=== PATIENT | female | born 1995 | race Asian ===

== ENCOUNTER 2024-08-19 19:00 | Inpatient (IN) | payer MEDICAID, SELFPAY ==
[2024-08-19 19:15] VITALS: BMI 40.5
[2024-08-19 19:27] VITALS: BP 115/62; PULSE 88; PULSE 90; RESP 18; TEMP 36.6; O2SAT 97
[2024-08-19 19:53] LABS: Absolute Lymphocyte Count 1.88 X10^3/uL (0.83-4.51); Absolute Neutrophil Count 5.5 X10^3/uL (2.0-7.7); Basophil# 0.02 X10^3/uL; Basophil% 0.3 % (0-1); Eosinophil# 0.05 X10^3/uL; Eosinophils% 0.6 % (0-5); Hematocrit 40.4 % (37-47); Lymphocyte # 1.88 X10^3/ul (0.83-4.51); Lymphocyte % 23.7 % (19-41); Mean Corp Hgb Conc 34.7 g/dL (32-36); Mean Corpuscular Hgb 32.9 pg (27.0-32.0); Mean Corpuscular Volume 94.8 fL (81-99); Monocyte# 0.48 X10^3/uL; Monocyte% 6.1 % (0-10); NRBC Flagged by Analyzer 0 % (0-5); Neutrophil # 5.45 X10^3/uL (2.7-7.7); Neutrophil % 68.7 % (47-70); Platelet Count 196 K/mm3 (150-450); RBC Distribution Width SD 44.5 fl (35.1-43.9); Red Blood Count 4.26 M/mm3 (4.2-5.4); White Blood Count 7.9 K/mm3 (4.4-11.0)
--- NOTE | 2024-08-19 20:03 | PCM.HP.OB ---
HPI - General General Date of Admission: 08/19/24 HPI Narrative JEANNIE JESSICA, is a 29 F who presents for scheduled induction of labor for cholestasis. Maternal Data Information DEEPAK Calculator Estimated Delivery Date Method Current WG Current Estimate 09/09/24 Manual 37w 0d PFSH PFSH Home Medications ?Medication ?Instructions ?Recorded ?Last Taken ?Type aspirin 81 mg capsule 81 mg PO DAILY 08/19/24 08/19/24 History vit no.95-ferrous 1 tab PO DAILY 08/19/24 08/19/24 History fumarate 28 mg-folic acid 800 mcg tablet () ursodiol 300 mg capsule 300 mg PO TID cholestasis 08/19/24 08/19/24 History Allergy/AdvReac Type Severity Reaction Status Date / Time No Known Allergies Allergy Verified 08/19/24 19:34 NST FHR Rate Baby A Baseline: 140 Variability:: Moderate Accelerations:: 15 x 15 Decelerations:: None NST Reactive:: Yes FHR Category:: Category I Uterine Activity:: Irritability- occasional contraction ROS Eyes Eyes: Denies blurry vision, change in vision or spots in vision ENT HEENT: Denies dizziness or headache(s) Cardiovascular Cardiovascular: Denies abdominal pain, chest pain or dyspnea Respiratory/Chest Respiratory/Chest: Denies cough, dyspnea, shortness of breath at rest or shortness of breath with exertion Gastrointestinal Gastrointestinal: Denies abdominal pain, diarrhea or vomiting Genitourinary Genitourinary: Denies change in urinary stream, difficulty urinating or dysuria Musculoskeletal Musculoskeletal: Reports none Integumentary Integumentary: Denies rash Neurologic Neurologic: Denies dizziness, headache(s), memory loss or weakness Psychiatric Psychiatric: Reports none Vital Signs Vital Signs Vital Signs: 08/19/24 19:27 08/19/24 19:27 08/19/24 19:27 Temperature Temperature Source Pulse Rate 88 Respiratory Rate Blood Pressure 115/62 BP Systolic 115 BP Diastolic 62 Pulse Ox 97 08/19/24 19:27 08/19/24 19:27 08/19/24 19:27 Temperature Temperature Source Temporal Pulse Rate 90 Respiratory Rate 18 Blood Pressure BP Systolic BP Diastolic Pulse Ox 08/19/24 19:27 Temperature 97.8 F Temperature Source Pulse Rate Respiratory Rate Blood Pressure BP Systolic BP Diastolic Pulse Ox Weight Weight: 229 lb Body Mass Index (BMI) 40.5 Physical Exam Const alert, oriented x3 and no apparent distress General Appearance: cooperative Orientation / Consciousness: awake Exam Limitations: no limitations HEENT normocephalic Head and Scalp: normal to inspection Eyes General Eye: normal appearance of both eyes Neck full ROM and no lymphadenopathy Lymph Lymphatic: no lymphadenopathy noted Chest inspection of chest normal Resp normal respiratory effort, normal air movement and clear to auscultation bilaterally Effort and Inspection: able to speak in complete sentences and symmetric chest movement Cardio regular rate and regular rhythm GI normal to inspection, nondistended, normoactive bowel sounds Manual OB Exam: presentation cephalic Back/Spine normal ROM Extremity full ROM and no calf tenderness Skin no rashes or lesions noted General Skin Exam: no breakdown Neuro oriented x3 and CN's II-XII intact bilaterally Psych mental status grossly normal and thought process normal Labs Labs Labs: Blood Type Pending Antibody Screen Pending Hct 40.4 % (37-47) Hgb 14.0 g/dL (12.0-15.0) Syphilis Total Ab Pending Assessment & Plan (1) 37 weeks gestation of : (2) Encounter for induction of labor: (3) Cholestasis during : (4) Obesity affecting : (5) Language barrier: COMMENT: Speaks Mandarin. Partner speaks Albanian (6) Positive GBS test: PLAN: Plan Admit to labor and delivery Routine labs Start IV and run fluids per orders CE - closed Start Cytotec 25 mcg PO every 4 hours x 6 doses total GBS positive - Start PCN protocol Dr. Freitas notified of admission and is collaboraing physician
[2024-08-19 20:39] LABS: Syphilis Antibodies Nonreactive (Nonreactive)
[2024-08-19] MEDS: miSOPROStol 25 MCG TABLET PO (23:30)
[2024-08-19 23:33] VITALS: PULSE 81; RESP 16; TEMP 36.3; O2SAT 97
[2024-08-19 23:34] VITALS: BP 115/74; PULSE 77
[2024-08-20] VITALS (82 sets, daily range): BP systolic 83–166; BP diastolic 49–106; PULSE 59–139; RESP 16–18; TEMP 36.1–36.5; O2SAT 79–99
[2024-08-20] MEDS: miSOPROStol 25 MCG TABLET PO (03:39)
--- NOTE | 2024-08-20 08:17 | PN.OBGYN_ITS ---
Subjective Subjective Resting in bed comfortable, at bedside. Objective Data Objective Data Vital Signs: Vital Signs Temp Pulse Resp BP Pulse Ox 97.4 F L 69 16 115/77 97 08/20/24 07:16 08/20/24 07:16 08/20/24 07:16 08/20/24 07:16 08/20/24 07:16 Weight: 229 lb Body Mass Index (BMI) 40.5 Intake & Output: Intake and Output for Last 24 Hours 08/18/24 08/19/24 08/20/24 23:59 23:59 23:59 Intake Total 500 / 500 600 / 600 Output Total 400 / 400 300 / 300 Balance 100 / 100 300 / 300 Lab / Micro Data 08/19/24 19:40 Labs: Laboratory Results - last 24 hr 08/19/24 19:40: WBC 7.9, RBC 4.26, Hgb 14.0, Hct 40.4, MCV 94.8, MCH 32.9 H, MCHC 34.7, RDW Std Deviation 44.5 H, RDW Coeff of Hans 13.0, Plt Count 196, MPV 10.0, Immature Gran % (Auto) 0.600, Neut % (Auto) 68.7, Lymph % (Auto) 23.7, [place] % (Auto) 6.1, Eos % (Auto) 0.6, Baso % (Auto) 0.3, Absolute Neuts (auto) 5.5, Absolute Lymphs (auto) 1.88, Nucleated RBC % 0, Syphilis Total Ab Nonreactive, Blood Type O POSITIVE, Antibody Screen NEGATIVE Physical Exam Manual OB Exam: estimated gestational size appropriate, presentation cephalic, dilated 1, effaced 60, station -3 and other jerome inserted with 30ml NS over stylus, tolerated well NST FHR Rate Baby A Baseline: 120 Variability:: Moderate Accelerations:: 15 x 15 Decelerations:: None FHR Category:: Category I Uterine Activity:: Irregular Assessment & Plan (1) Positive GBS test: (2) Language barrier: COMMENT: Speaks Mandarin. Partner speaks Belarusian (3) Obesity affecting : (4) Cholestasis during : (5) Encounter for induction of labor: (6) 37 weeks gestation of : PLAN: Plan 1) Jerome for cervical ripening and start pitocin 2) Continuous EFM 3) Epidural for pain management upon request 4) collaborative physician and updated on patient above assessment, plan, and status
[2024-08-20] MEDS: 0.9% Normal Saline Single 100 ML IV.SOLN. INTRA-UTER (08:19)
[2024-08-20] MEDS: Penicillin G Pot 5,000,000 UNITS in 0.9% Normal Saline (100mL MB+) 100 ML 150 UNITS IV (08:34)
[2024-08-20] MEDS: Lactated Ringers 1,000 ML 50 ML IV (08:37)
[2024-08-20] MEDS: Oxytocin 15 Units/NS 250ml 15 UNITS/250 ML IV.SOLN 334 UNITS IV (09:30)
[2024-08-20] MEDS: Oxytocin 15 Units/NS 250ml 15 UNITS/250 ML IV.SOLN 2 UNITS IV (09:30)
[2024-08-20] MEDS: Lactated Ringers 1,000 ML 999 ML IV (11:30)
--- NOTE | 2024-08-20 11:40 | PCM.PN.OB ---
Subjective Subjective Resting in bed, becoming more uncomfortable. at bedside. Objective Data Objective Data Vital Signs: Vital Signs Temp Pulse Resp BP Pulse Ox 97.2 F L 68 18 93/49 L 97 08/20/24 10:56 08/20/24 10:58 08/20/24 10:56 08/20/24 10:58 08/20/24 10:57 Weight: 229 lb Body Mass Index (BMI) 40.5 Intake & Output: Intake and Output for Last 24 Hours 08/18/24 08/19/24 08/20/24 23:59 23:59 23:59 Intake Total 500 / 500 605.37 / 605.37 Output Total 400 / 400 300 / 300 Balance 100 / 100 305.37 / 305.37 Lab / Micro Data 08/19/24 19:40 Labs: Laboratory Results - last 24 hr 08/19/24 19:40: WBC 7.9, RBC 4.26, Hgb 14.0, Hct 40.4, MCV 94.8, MCH 32.9 H, MCHC 34.7, RDW Std Deviation 44.5 H, RDW Coeff of Hans 13.0, Plt Count 196, MPV 10.0, Immature Gran % (Auto) 0.600, Neut % (Auto) 68.7, Lymph % (Auto) 23.7, [place] % (Auto) 6.1, Eos % (Auto) 0.6, Baso % (Auto) 0.3, Absolute Neuts (auto) 5.5, Absolute Lymphs (auto) 1.88, Nucleated RBC % 0, Syphilis Total Ab Nonreactive, Blood Type O POSITIVE, Antibody Screen NEGATIVE Physical Exam Manual OB Exam: presentation cephalic, dilated 5cm, effaced 60, station -1 and other arom clear fluid NST FHR Rate Baby A Baseline: 120 Variability:: Moderate Accelerations:: 15 x 15 Decelerations:: None FHR Category:: Category I Uterine Activity:: 3.5 minutes Assessment & Plan (1) Positive GBS test: (2) Language barrier: COMMENT: Speaks Mandarin. Partner speaks Samoan (3) Obesity affecting : (4) Cholestasis during : (5) Encounter for induction of labor: (6) 37 weeks gestation of : PLAN: Plan 1) AROM. Pitocin per protocol 2) Category 1 FHT 3) Epidural for pain management 4) collaborative physician and notified of above patient assement and plan.
[2024-08-20] MEDS: fentaNYL-bupivacaine (epidural) 100 ML BAG EPIDURAL ×2 (12:00→16:27)
[2024-08-20] MEDS: Penicillin G 3,000,000 Units 50 ML 100 UNITS IV ×2 (13:21→16:44)
[2024-08-20] MEDS: LACTATED RINGERS 500 ML 999 ML IV ×3 (15:12→19:05)
[2024-08-20] MEDS: Ondansetron 4 MG/2 ML Vial IV ×3 (16:19→23:15)
[2024-08-20] MEDS: Lactated Ringers 1,000 ML 200 ML IV (16:46)
--- NOTE | 2024-08-20 17:41 | EX.PCM.OBVAG ---
Assessment & Plan (1) (normal spontaneous vaginal delivery): Maternal Data Information DEEPAK Calculator Estimated Delivery Date Method Current WG Current Estimate 09/09/24 Manual 37w 1d Vaginal Delivery Maternal Presentation Maternal Presentation: Medically Indicated Induction Type of Induction: Pitocin, Garcia Bulb and Cytotec Medical Reason for Induction: Other (cholestasis) Vaginal Delivery Information Procedure Performed: Spontaneous Vaginal Delivery Date of Procedure: 08/20/24 Pre-Procedure Diagnosis: Induction of labor, cholestasis Post-Procedure Diagnosis: Type of anesthesia: Epidural Time of Delivery: 17:25 Findings Description of procedure: Progressed to complete with urge to push. Epidural for pain management. of viable male over intact perineum . APGARS 8,9 respectively. head delivered with body immediately forthcoming. Placed on maternal abdomen, strong cry. Mouth and nares suctioned for secretions. Pitocin started for active 3rd stage management. Cord doubly clamped and cut by FOB after pulsations ceased, delayed cord clamping. Placenta delivered intact via landry, 3 vessel cord intact. Perineum inspected and revealed intact. Fundus firm and hemostasis achieved. EBL 200ml. Mom and baby stable, planning to breastfeed. Family bonding well. Dr. Brower notified of delivery. Presentation: Vertex Amniotic Membrane Rupture Type: Artificial Amniotic Fluid Description: Clear Placental Delivery Description: Spontaneous Placenta Disposition: [facility] Specimen collected: No Cord Vessel Description: 3 Vessels Cord Entanglement: None A Gender: Male (1 minute): 8 (5 minute): 9 Delayed Cord Clamping: Yes Firestopper Technician glued wood tester: No Post Vaginal Deli Medications given after delivery: IV Pitocin Episiotomy Description: None Laceration: None Complication Complications: No
[2024-08-20] MEDS: Oxytocin 15 Units/NS 250ml 15 UNITS/250 ML IV.SOLN 83 UNITS IV (18:00)
[2024-08-20] MEDS: Methylergonovine 0.2 MG/ML Ampul IM (18:17)
[2024-08-20] MEDS: miSOPROStol 200 MCG Tablet 1000 MCG RC (18:28)
[2024-08-20] MEDS: Carboprost Tromethamine 250 MCG/ML Ampul IM (18:41)
[2024-08-20] MEDS: Loperamide 2 MG Capsule 4 MG PO (19:02)
--- NOTE | 2024-08-20 19:03 | PCM.PN.OB ---
Subjective Subjective Called to unit for increased bleeding. Was having increased dizziness and slow trickle of blood. Blood pressure in 80/50s and patient symptomtatic. Objective Data Objective Data Vital Signs: Vital Signs Temp Pulse Resp BP Pulse Ox 97.7 F L 70 18 99/56 L 98 08/20/24 16:22 08/20/24 19:01 08/20/24 16:22 08/20/24 18:50 08/20/24 19:01 Weight: 229 lb Body Mass Index (BMI) 40.5 Intake & Output: Intake and Output for Last 24 Hours 08/18/24 08/19/24 08/20/24 23:59 23:59 23:59 Intake Total 500 / 500 3364.10 / 3364.10 Output Total 400 / 400 1250 / 1250 Balance 100 / 100 2114.10 / 2114.10 Lab / Micro Data 08/19/24 19:40 Labs: Laboratory Results - last 24 hr 08/19/24 19:40: WBC 7.9, RBC 4.26, Hgb 14.0, Hct 40.4, MCV 94.8, MCH 32.9 H, MCHC 34.7, RDW Std Deviation 44.5 H, RDW Coeff of Hans 13.0, Plt Count 196, MPV 10.0, Immature Gran % (Auto) 0.600, Neut % (Auto) 68.7, Lymph % (Auto) 23.7, [place] % (Auto) 6.1, Eos % (Auto) 0.6, Baso % (Auto) 0.3, Absolute Neuts (auto) 5.5, Absolute Lymphs (auto) 1.88, Nucleated RBC % 0, Syphilis Total Ab Nonreactive, Blood Type O POSITIVE, Antibody Screen NEGATIVE Physical Exam Narrative: Vaginal sweep completed and multiple clots less than 50cent piece in size expelled, approximately 300ml, weighed. Assessment & Plan (1) hemorrhage: (2) (normal spontaneous vaginal delivery): PLAN: Plan 1) Vaginal sweep and fundal massage, bleeding stopped at this time. 2) Stat H&H, BP 95/65 3) 1Liter LR 4) methergine, cytotec, and hemabate given 5) zofran 4mg IV and immodium for hemabate side effects 6) notified of above patient assessment and plan.
[2024-08-20 19:04] LABS: Absolute Lymphocyte Count 1.35 X10^3/uL (0.83-4.51); Absolute Neutrophil Count 12.4 X10^3/uL (2.0-7.7); Basophil# 0.04 X10^3/uL; Basophil% 0.3 % (0-1); Eosinophil# 0.03 X10^3/uL; Eosinophils% 0.2 % (0-5); Hematocrit 43.1 % (37-47); Hemoglobin 14.9 g/dL (12.0-15.0); Lymphocyte # 1.35 X10^3/ul (0.83-4.51); Lymphocyte % 9.2 % (19-41); Mean Corp Hgb Conc 34.6 g/dL (32-36); Mean Corpuscular Hgb 32.8 pg (27.0-32.0); Mean Corpuscular Volume 94.9 fL (81-99); Monocyte# 0.87 X10^3/uL; Monocyte% 5.9 % (0-10); NRBC Flagged by Analyzer 0 % (0-5); Neutrophil # 12.37 X10^3/uL (2.7-7.7); Platelet Count 178 K/mm3 (150-450); RBC Distribution Width CV 13.1 % (11.6-14.6); RBC Distribution Width SD 45.6 fl (35.1-43.9); Red Blood Count 4.54 M/mm3 (4.2-5.4); White Blood Count 14.7 K/mm3 (4.4-11.0)
[2024-08-20] MEDS: Loperamide 2 MG Capsule PO (22:37)
[2024-08-20] MEDS: 0.9% Saline Lock 10 ML Syringe IV (23:15)
[2024-08-21] VITALS (7 sets, daily range): BP systolic 99–134; BP diastolic 57–83; PULSE 72–100; RESP 16; TEMP 36.1–36.8; O2SAT 96–97
[2024-08-21] MEDS: Acetaminophen 500 MG Tablet 1000 MG PO (05:09)
[2024-08-21 05:27] LABS: Absolute Lymphocyte Count 1.92 X10^3/uL (0.83-4.51); Absolute Neutrophil Count 12.2 X10^3/uL (2.0-7.7); Basophil# 0.05 X10^3/uL; Basophil% 0.3 % (0-1); Eosinophil# 0.06 X10^3/uL; Eosinophils% 0.4 % (0-5); Hematocrit 42.7 % (37-47); Hemoglobin 14.9 g/dL (12.0-15.0); Lymphocyte # 1.92 X10^3/ul (0.83-4.51); Lymphocyte % 12.5 % (19-41); Mean Corp Hgb Conc 34.9 g/dL (32-36); Mean Corpuscular Hgb 32.7 pg (27.0-32.0); Mean Corpuscular Volume 93.6 fL (81-99); Mean Platelet Vol. 9.7 fl (6.2-12.0); Monocyte# 1.03 X10^3/uL; Monocyte% 6.7 % (0-10); NRBC Flagged by Analyzer 0 % (0-5); Neutrophil # 12.21 X10^3/uL (2.7-7.7); Neutrophil % 79.6 % (47-70); Platelet Count 198 K/mm3 (150-450); RBC Distribution Width CV 12.9 % (11.6-14.6); Red Blood Count 4.56 M/mm3 (4.2-5.4); White Blood Count 15.4 K/mm3 (4.4-11.0)
[2024-08-21] MEDS: Ibuprofen 600 MG Tablet PO ×2 (07:42→17:28)
[2024-08-21] MEDS: Benzocaine/Lanolin/Aloe Vera 85 GM Spray 1 SPRAY TOPICAL (07:42)
--- NOTE | 2024-08-21 08:14 | PCM.PROGNOTE ---
Subjective Subjective patient seen at bedside, doing well. Patient reports good pain control. lochia mild no more heavy bleeding episodes. reports feeling well when walking no longer dizzy. Objective Data Objective Data Vital Signs: Vital Signs Temp Pulse Resp BP Pulse Ox O2 Del Method 97.2 F L 72 16 108/73 98 Room Air 08/21/24 07:37 08/21/24 07:38 08/21/24 07:37 08/21/24 07:38 08/20/24 19:31 08/21/24 07:37 Oxygen Delivery Method Room Air Weight: 103.873 kg Body Mass Index (BMI) 40.5 Intake & Output: Intake and Output for Last 24 Hours 08/19/24 08/20/24 08/21/24 23:59 23:59 23:59 Intake Total 500 / 500 4951.67 / 4951.67 Output Total 400 / 400 2150 / 2150 300 / 300 Balance 100 / 100 2801.67 / 2801.67 -300 / -300 Lab / Micro Data 08/21/24 05:20 Labs: Laboratory Results - last 24 hr 08/20/24 18:50: WBC 14.7 H, RBC 4.54, Hgb 14.9, Hct 43.1, MCV 94.9, MCH 32.8 H, MCHC 34.6, RDW Std Deviation 45.6 H, RDW Coeff of Hans 13.1, Plt Count 178, MPV 10.0, Immature Gran % (Auto) 0.400, Neut % (Auto) 84.0 H, Lymph % (Auto) 9.2 L, [place] % (Auto) 5.9, Eos % (Auto) 0.2, Baso % (Auto) 0.3, Absolute Neuts (auto) 12.4 H, Absolute Lymphs (auto) 1.35, Nucleated RBC % 0 08/21/24 05:20: WBC 15.4 H, RBC 4.56, Hgb 14.9, Hct 42.7, MCV 93.6, MCH 32.7 H, MCHC 34.9, RDW Std Deviation 44.0 H, RDW Coeff of Hans 12.9, Plt Count 198, MPV 9.7, Immature Gran % (Auto) 0.500, Neut % (Auto) 79.6 H, Lymph % (Auto) 12.5 L, [place] % (Auto) 6.7, Eos % (Auto) 0.4, Baso % (Auto) 0.3, Absolute Neuts (auto) 12.2 H, Absolute Lymphs (auto) 1.92, Nucleated RBC % 0 Physical Exam Narrative abd: soft, fundus firm Const alert and oriented x3 General Appearance: cooperative HEENT normocephalic Neck General: normal visual inspection GI soft to palpation and non-distended GI Narrative: Fundus firm Extremity normal to inspection and no calf tenderness Skin no rashes or lesions noted Neuro oriented x3 and CN's II-XII intact bilaterally Psych mental status grossly normal Assessment & Plan Assessment/Plan (1) hemorrhage: (2) (normal spontaneous vaginal delivery): PLAN: Plan PPD# 1 , Doing well Routine care pain mgmt ambulation recheck cbc- if stable plan dc home tonight
--- NOTE | 2024-08-21 08:16 | DCINST_ITS ---
Discharge Instructions Diet Discharge Diet: No restrictions DC O2, CPAP, BIPAP needs Home O2 Discharge instructions: No Dressing / Incision May resume sexual activity in: 6-8 weeks Dressing / Incision Call your doctor if you observe: Fever of 101 or Higher, Inability to urinate, Using more than 1 pad per hour and Uncontrolled pain Follow Up Care Please Follow Up With: Edda Hoffman CNM When: 1 week post and again at 6 weeks post . [phone] Test Results: Test results from this visit will be discussed in further detail at your follow- up appointment, if applicable. Discharge Plan Admission Admit Date/Time: 08/19/24 19:00 Attending Provider: Edda Hoffman Primary Care Provider: Audra Lopez Discharge Orders/Prescriptions Prescriptions: New acetaminophen 500 mg Tablet 1,000 mg PO Q6H PRN PRN (Reason: Pain 1-10 Or Fever) Qty: 0 0RF ibuprofen 600 mg Tablet 600 mg PO Q6H PRN PRN (Reason: Pain Score 1-10) Qty: 0 0RF Continued PNV cmb#95-ferrous fumarate-FA [] 28 mg iron- 800 mcg tablet 1 tab PO DAILY Discontinued aspirin 81 mg capsule 81 mg PO DAILY ursodiol 300 mg capsule 300 mg PO TID Referrals / Follow Up: Audra Lopez, [employer] [Primary Care Provider] - Disposition Disposition (needs filled in before D/C Order can be placed): Home, Self Care
[2024-08-21 12:05] LABS: Hematocrit 40.1 % (37-47); Hemoglobin 14.2 g/dL (12.0-15.0); Mean Corp Hgb Conc 35.4 g/dL (32-36); Mean Corpuscular Hgb 33.5 pg (27.0-32.0); Mean Corpuscular Volume 94.6 fL (81-99); Mean Platelet Vol. 9.8 fl (6.2-12.0); Platelet Count 173 K/mm3 (150-450); RBC Distribution Width CV 13.2 % (11.6-14.6); Red Blood Count 4.24 M/mm3 (4.2-5.4)
--- NOTE | 2024-08-28 11:04 | NURSING ---
Follow up phone call made, no answer, voicemail left
== END 2024-08-21 18:55 | disposition home or self-care (01) | DRG 560 ==
PROVIDERS: Advanced Practice Midwife; Obstetrics & Gynecology; Admitting Provider Advanced Practice Midwife; Referring Provider Advanced Practice Midwife; Visit Provider Advanced Practice Midwife
DX: O26.62 Liver and biliary tract disorders in childbirth (principal); Z37.0 Single live birth; K83.1 Obstruction of bile duct; O98.82 Other maternal infectious and parasitic diseases complicating childbirth; O72.1 Other immediate postpartum hemorrhage; O99.214 Obesity complicating childbirth; O99.62 Diseases of the digestive system complicating childbirth; B95.1 Streptococcus, group B, as the cause of diseases classified elsewhere; Z60.3 Acculturation difficulty; Z3A.37 37 weeks gestation of pregnancy; Z79.82 Long term (current) use of aspirin
CPT/HCPCS: 59025; 59050; 85025; 85027; 86780; 86850; 86900; 86901; 99221; A4216; G0378; J2405